=== PATIENT | female | born 1985 | race Caucasian/White ===

== ENCOUNTER 2018-07-24 05:34 | Day surgery (SDC) | payer MEDICAID ==
[~2018-07-24] VITALS: Ht 157.5 cm; Wt 79.4 kg
[~2018-07-24 05:34] MED LIST: LACTATED RINGERS 1,000 ML IV SCH; PREN-88 PO
[2018-07-24 06:17] LABS: UCG SCREEN NEGATIVE
[2018-07-24] MEDS ORDERED: BUPIVACAINE/EPINEPH/PF 0.25%/0.0005 10ML ONE (07:11)
[2018-07-24] MEDS ORDERED: MORPHINE SULFATE 10 MG/ML CPJ ONE (07:11)
[2018-07-24] MEDS ORDERED: MORPHINE SULFATE/PF 1MG/ML 10ML AMP ONE (07:12)
[2018-07-24] MEDS ORDERED: DEXAMETHASONE 4MG/ML 1ML VIAL ONE (07:39)
[2018-07-24] MEDS ORDERED: LIDOCAINE HCL/PF 1% 10 MG/ML 5ML VIAL ONE (07:39)
[2018-07-24] MEDS ORDERED: CLINDAMYCIN 900 MG PREMIX 50 ML IV ONE (08:00)
[2018-07-24] MEDS ORDERED: ONDANSETRON HCL 4MG/2ML INJ ONE (08:29)
[2018-07-24] MEDS ORDERED: METOCLOPRAMIDE HCL 10MG/2ML VIAL ONE (08:29)
[2018-07-24] MEDS ORDERED: KETOROLAC 30MG/ML VIAL ONE (08:30)
[2018-07-24] MEDS ORDERED: HYDRALAZINE 20MG/ML VIAL IV PRN (09:15)
[2018-07-24] MEDS ORDERED: HYDROMORPHONE HCL/PF 2MG/ML CPJ IV PRN (09:15)
[2018-07-24] MEDS ORDERED: HYDROCODONE/ACETAMINOPHEN 10/325MG TABLET PO PRN (09:15)
[2018-07-24] MEDS ORDERED: ONDANSETRON HCL 4MG/2ML INJ IV PRN (09:15)
== END 2018-07-24 11:45 | disposition home or self-care (01) ==
LOC: OR 05:34
PROVIDERS: ATTEND Orthopaedic Surgery
DX: S83.207A Unspecified tear of unspecified meniscus, current injury, left knee, initial encounter (principal); M94.262 Chondromalacia, left knee; X58.XXXA Exposure to other specified factors, initial encounter; Y93.9 Activity, unspecified; Y92.9 Unspecified place or not applicable; Y99.9 Unspecified external cause status; Z88.0 Allergy status to penicillin
CPT/HCPCS: 29881; 81025; 88305; 88311; 97116; 97162; J0171; J1100; J1885; J2274; J2405; J2765; J3490; J2270

== ENCOUNTER 2020-03-21 10:19 | Observation (INO) | payer MEDICAID ==
[~2020-03-21] VITALS: Ht 154.9 cm; Wt 62.1 kg
[2020-03-21 11:25] LABS: CHLORIDE 107 mEq/L (98-107)
[2020-03-21 11:26] LABS: BASOPHILS % 0.4 % (0.0-2.0); EOSINOPHILS % 1.2 % (0.0-5.0); HEMATOCRIT. 43.4 % (36.0-48.0); HEMOGLOBIN. 14.8 g/dL (12.0-16.0); LYMPHOCYTES % 19.4 % (20.0-50.0); MEAN CORPUSCULAR HEMOGLOBIN 30.3 pg (28.0-32.0); MEAN CORPUSCULAR VOLUME 88.5 fL (81.0-99.0); MEAN PLATELET VOLUME 9.1 fl (7.4-10.4); MONOCYTES % 5.3 % (2.0-8.0); NEUTROPHILS % 73.7 % (40.0-76.0); PLATELET 196 x1000/uL (130-400)
[2020-03-21 11:30] LABS: PARTIAL THROMBOPLASTIN TIME 29.1 sec (23.4-31.0); PROTHROMBIN TIME 10.3 sec (9.6-11.0)
[2020-03-21 11:57] LABS: CLARITY URINE CLEAR (CLEAR); COLOR URINE YELLOW (YELLOW); KETONES URINE 1+ (NEGATIVE); LEUKOCYTE ESTERASE URINE TRACE (NEGATIVE); NITRITE URINE NEGATIVE (NEGATIVE); OCCULT BLOOD URINE NEGATIVE (NEGATIVE); PROTEIN URINE NEGATIVE (NEGATIVE); UROBILINOGEN URINE 0.2 E.U./dL (0.2-1.0)
== END 2020-03-21 13:55 | disposition home or self-care (01) ==
LOC: 8 EST LDRP 10:19
PROVIDERS: ADMIT Obstetrics & Gynecology; ATTEND Obstetrics & Gynecology
DX: O13.3 Gestational [pregnancy-induced] hypertension without significant proteinuria, third trimester (principal); O36.5930 Maternal care for other known or suspected poor fetal growth, third trimester, not applicable or unspecified; Z3A.37 37 weeks gestation of pregnancy
CPT/HCPCS: 36415; 59025; 76805; 76818; 80053; 81003; 84550; 85025; 85384; 85610; 85730; G0378

== ENCOUNTER 2020-03-23 10:28 | Observation (INO) | payer MEDICAID ==
[~2020-03-23] VITALS: Ht 154.9 cm; Wt 79.8 kg
[2020-03-23] MEDS ORDERED: PNV1TABL76 MT (12:13)
== END 2020-03-23 12:20 | disposition home or self-care (01) ==
LOC: 8 EST LDRP 10:28
PROVIDERS: ADMIT Obstetrics & Gynecology; ATTEND Obstetrics & Gynecology
DX: O36.5993 Maternal care for other known or suspected poor fetal growth, unspecified trimester, fetus 3 (principal); Z3A.36 36 weeks gestation of pregnancy
CPT/HCPCS: 59025; 76815; 76818; G0378; 99281

== ENCOUNTER 2020-03-26 13:54 | Observation (INO) | payer MEDICAID ==
[~2020-03-26] VITALS: Ht 154.9 cm; Wt 79.8 kg
[~2020-03-26 13:54] MED LIST changes: -LACTATED RINGERS 1,000 ML IV SCH; +PNV1TABL76 MT; -PREN-88 PO
== END 2020-03-26 16:15 | disposition home or self-care (01) ==
LOC: LAB 13:54 → 8 EST LDRP 14:11
PROVIDERS: ADMIT Obstetrics & Gynecology; ATTEND Obstetrics & Gynecology
DX: Z34.93 Encounter for supervision of normal pregnancy, unspecified, third trimester (principal); Z3A.37 37 weeks gestation of pregnancy
CPT/HCPCS: 59025; 76815; 76818; G0378; 99281